=== PATIENT | female | born 1950 | race Caucasian/White ===

== ENCOUNTER 2019-08-01 18:16 | Emergency (ER) | payer OTHER ==
[~2019-08-01] VITALS: Ht 165.1 cm; Wt 59.0 kg
[~2019-08-01 18:16] MED LIST: ASPIR 8181 MG PO; BIOTIN1000 MCG PO; BIOTIN5 MG PO; CALCIUM 500 MG1 EAC1 PO; CALCIUM500 MG PO; CARVEDILOL3.125 MG PO; CLONAZEPAM 1 MG1 M1 PO; COREG3.125 MG PO; COZAAR 50 MG TA50 M1 PO; COZAAR 50 MG TA50 M2 PO; DEPAKOTE 250MG250 M1 PO; LAMICTAL100 MG PO; LATUDA120 MG PO; LATUDA40 MG PO; LATUDA80 MG PO; LEVOTHYROXIN0.075 MG PO; OMEGA-31000 M1 PO; OMEPRAZOLE 20 M20 M1 PO; OMEPRAZOLE20 M2 PO; OXYBUTYNIN 5 MG5 M2 PO; SYNTHROID75 MCG PO; VITAMIN D1000 UNI1; VITAMIN D1000 UNI1 PO; VITAMIN D31000 UNIT PO; VITAMIN E400 UNIT PO
[2019-08-01 22:03] VITALS: BP 145/56
--- NOTE | 2019-08-02 21:48 | P ---
[facility] [place] [address] PROCEDURE REPORT Name: ROSA M ENCINAS Room #: [facility]#: [id number] Admission: 08/01/19 Attend Phys: Discharge: 08/01/19 Date of : 50 Report #: [id number] THIS REPORT FOR: //name// CC: CLIFFORD Smith DO DATE OF SERVICE: 08/01/2019 PROCEDURE: Esophagogastroduodenoscopy with esophageal dilatation with a #48 Savary dilator over a guidewire. PATIENT OF: Dr. Mylene Jenkins and Dr. Bartolo See and Dr. Zoya Smith. INDICATION FOR PROCEDURE: Suspected food bolus impaction. The patient is unable to keep her saliva down when she swallows and vomits and empties her esophagus intermittently. EGD is being performed because this pattern of vomiting has continued while the patient was in the Emergency Room. She was given glucagon just prior to the EGD. Informed consent for this procedure was obtained after the risks of the procedure were explained to the patient. The risks include but are not limited to bleeding, perforation, infection, complications of sedation and the possibility I could miss something. The patient has indicated her consent to proceed by signing. Anesthesia kindly provided deep sedation for this procedure. DESCRIPTION OF PROCEDURE: With the patient in the left lateral decubitus position, the Olympus upper videoscope was introduced through the upper esophageal sphincter and advanced under direct visualization to the distal esophagus. A food bolus is not seen in the esophagus. There is a distal esophageal stricture that is moderate. The food bolus is seen in the stomach floating on some liquid. I think that it probably passed spontaneously after the glucagon was given. The scope was advanced down to the third portion of the duodenum. Findings are noted on withdrawal of the scope. The visualized portion of the duodenum appeared normal. Pylorus, normal mucosa. Antrum, normal mucosa. Body, normal mucosa. Cardia and fundus, normal mucosa. There is some retained food in the stomach and the food bolus is present there. Retroflexed view did not reveal any further abnormalities. There were no cardia abnormalities to cause a pseudoobstruction. The scope was then withdrawn into the esophagus. The Z-line is appropriately located at the top of the gastric folds and it appears normal, but there is a stricture at this area. The esophageal mucosa is slightly denuded distally, but there are no tears or [facility] [address] [place] [address] PROCEDURE REPORT Name: ROSA M ENCINAS Room #: [facility]#: [id number] Admission: 08/01/19 Attend Phys: Discharge: 08/01/19 Date of : 50 Report #: [id number] erosions. The more proximal esophagus appears normal. The scope was advanced down into the stomach. Again, a guidewire was advanced through the scope. The scope was withdrawn over the guidewire. Then, a #48 Savary dilator was passed without difficulty over the wire down to 50 cm. The guidewire and the dilator were removed. Then, the Olympus upper videoscope was reintroduced through the upper esophageal sphincter and advanced down into the stomach, there is some mild bleeding of the distal esophagus where the stricture was opened up, but it stopped spontaneously on its own and the distal esophagus appears widely patent at this time. The scope was withdrawn. The patient went to the recovery area in stable condition. She tolerated the procedure well. IMPRESSION: 1. Food bolus impaction that fell into the stomach spontaneously after glucagon injection, I suppose. 2. Distal esophageal stricture dilated with #48 Greek Savary over a guidewire as above. 3. Mild denudation of the distal esophagus. No tears or ulcerations or erosions seen. 4. Normal duodenum. RECOMMENDATIONS: My recommendations were for her to continue taking her omeprazole or Prilosec as before. Thank you very much once again for allowing me to participate in her care, Dr. Jenkins and Dr. Smith. <ELECTRONICALLY SIGNED> By: Smitha Sewell DO 08/02/198 54 Smitha Sewell DO /nt
== END 2019-08-01 22:12 | disposition home or self-care (01) ==
LOC: ER 18:16
DX: K22.2 Esophageal obstruction (principal); I10 Essential (primary) hypertension; E03.9 Hypothyroidism, unspecified; K21.9 Gastro-esophageal reflux disease without esophagitis; F31.9 Bipolar disorder, unspecified; Z90.710 Acquired absence of both cervix and uterus; Z90.49 Acquired absence of other specified parts of digestive tract; Z88.1 Allergy status to other antibiotic agents; Z88.2 Allergy status to sulfonamides; Z88.6 Allergy status to analgesic agent
CPT/HCPCS: 62110; 62900